=== PATIENT | male | born 1985 | race Caucasian/White ===

== ENCOUNTER 2024-04-30 12:36 | Emergency (ER) | payer SELFPAY ==
--- NOTE | ~2024-04-30 | CT_ITS ---
EXAMINATION: CT ABDOMEN AND PELVIS WITHOUT CONTRAST CLINICAL INFORMATION: Blood in urine. COMPARISON: None available. TECHNIQUE: Multidetector volumetric imaging was performed from the superior aspect of the liver through the pubic symphysis. Sagittal and coronal reformatted images were obtained on the technologist's workstation. This CT examination was performed using dose optimization techniques as appropriate, variously including the following: *Automated exposure control *Adjustment of mA and/or kV according to patient size (this includes techniques or standardized protocols for targeted exams where dose is matched to indication/reason for exam; i.e. extremities or head) *Use of iterative reconstruction technique DLP: 360 mGy-cm FINDINGS: LUNG BASES: No suspicious abnormality in the visualized lower chest LIVER, GALLBLADDER, AND BILIARY TREE: No suspicious abnormality in the liver. The gallbladder is somewhat contracted. No calcified stone. PANCREAS: No definite abnormality. SPLEEN: No suspicious abnormality. ADRENAL GLANDS: No suspicious abnormality. There is a left adrenal gland present. KIDNEYS AND URETERS: No left kidney is demonstrated. The right kidney measures at least 13.1 cm in greatest length. The right renal contour is smooth. There is no dilation of the urinary collecting system. No definite right ureteral calculus. No right perinephric collection. No suspicious right renal mass BLADDER: Bladder wall is mildly thickened. No focal mass demonstrated GASTROINTESTINAL TRACT: Large amount of fecal residue throughout the colon. Numerous fluid-filled small bowel loops. The stomach is not well-distended. I suspect segments of normal caliber partially gas-filled appendix are present. ABDOMINAL WALL: No significant hernia is appreciated. LYMPH NODES: No measurably enlarged lymph nodes. VASCULAR: No abdominal aortic aneurysm PELVIC VISCERA: No suspicious abnormality in the expected region of the prostate OSSEOUS STRUCTURES: Nonspecific irregularity involving the endplates at L5/S1 CT/CT abdomen pelvis wo IV con IMPRESSION: No opaque urinary calculus. No left kidney is demonstrated. The bladder wall is thickened. Fleischner guidelines were followed. Electronically signed by: Jatin Tam MD 04/30/2024 05:58 PM EDT
[2024-04-30 13:22] VITALS: BP 111/65; PULSE 72; RESP 16; TEMP 36.7; O2SAT 97; BMI 19.0
--- NOTE | 2024-04-30 13:22 | ED.MALEGU ---
HPI - Male Genitourinary General Chief complaint: Urogenital-Male Stated complaint: Blood in urine Time Seen by Provider: 04/30/24 18:05 Source: patient Mode of arrival: ambulatory Limitations: no limitations History of Present Illness ED Provider: ORTIZ REA PA-C HPI Narrative: 39-year-old male with no significant past medical history presents to the ED today for evaluation of dysuria and incomplete bladder emptying times 24 hours. Endorses associated lower abdominal pressure. Admits to seeing brown/pink coloration to his urine this morning, prompting him to come to the ED for further evaluation. Admits to new sexual partner 4 months ago and is unsure of STD status. Denies known fevers, chills, flank pain, penile discharge, rashes. Related Data Previous Rx's ?Medication ?Instructions ?Recorded cefuroxime axetil 500 mg tablet 500 mg PO BID 7 days #14 tabs 04/30/24 Allergies Allergy/AdvReac Type Severity Reaction Status Date / Time Seasonal Allergies Allergy Itching Verified 04/30/24 13:24 Review of Systems Review of Systems: Constitutional: No fever, chills, fatigue, night sweats, weight changes ENT/Mouth: No ear pain, hearing loss, nasal congestion, sinus pain, rhinorrhea, sore throat Eyes: No eye pain, swelling, redness, vision changes, discharge Cardio: No chest pain, palpitations, LATHAM, orthopnea, peripheral edema Pulm: No SOB, cough, sputum, wheezing, dyspnea, hemoptysis GI: No nausea, vomiting, hematemesis, abdominal pain, diarrhea, constipation, hematochezia, melena : No irregular bleeding, hematuria, flank pain, urinary flow changes, urinary incontinence or retention, +dysuria, +urgency, +frequency MSK: No back pain, neck pain, joint pain, myalgias Skin: No lesions, rashes Neuro: No weakness, numbness, paresthesias, LOC, dizziness, headache Psych: No anxiety/panic, depression, SI/HI, AH/VH All other systems reviewed and are negative. [facility] Past Medical History Attestation statement: The following information was validated with the patient. Source: old records reviewed and nursing notes reviewed Social History Social History Advance Directives: No Advance Directives Information Provided: No Physical Exam Vital Signs: Vital Signs: Last Vital Signs Temp 98.0 F 04/30/24 13:22 Pulse 63 04/30/24 16:59 Resp 17 04/30/24 16:59 BP 117/76 04/30/24 16:59 Pulse Ox 100 04/30/24 16:59 O2 Del Method Room Air 04/30/24 16:59 BMI result Body Mass Index 19.0 Vital signs stable, afebrile. General: Well appearing, in no acute distress. Skin: Warm, dry, intact. No rashes or lesions. Head: Normocephalic, atraumatic. EENT: Hearing is intact b/l. Conjunctiva clear. Sclera is anicteric. PERRLA. EOM intact. Moist mucous membranes.? Neck: Supple without LAD. FROM. Trachea midline.? Cardiac: Chest wall symmetric. RRR. No MRG. No JVD. Lungs: Normal respiratory effort without accessory muscle use. CTA bilaterally. No rales, rhonchi, or wheezes.? Abdomen: Soft, non-tender, non-distended. No rebound tenderness or guarding. Positive BS x4. No CVAT bilaterally. Back: No midline spinous or paraspinal tenderness. No step off deformity. Ext: Upper and lower extremities atraumatic, without tenderness, deformity, swelling or erythema. Neuro: AOx3. Normal speech. CN 2-12 grossly intact. Strength 5/5 intact throughout. Ambulating with steady gait. Psych: Appropriate mood and affect. Responds appropriately to questions. Course Course Course Narrative: This is a Rapid Medical Examination (RME) performed by Benigno Rea PA-C in triage. Full HPI, ROS, assessment and treatment plan per primary provider in the Main ED. 39 yo male here for eval of dysuria and incomplete bladder emptying x 24 hours. reports seeing brown/pink color in his urine this morning. admits to new sexual partner 4 mos ago. denies fever/chills, flank pain. + well appearing. no cvat. Plan: UA, CT/NG labs Reevaluation(s) Reevaluation #1: 1055 -- [place] [address] with left shift. Slight normocytic anemia. No prior labs to compare to. H&H stable and above transfusion threshold. Chemistry without acute electrolyte abnormality requiring intervention. No RENNY. Normal liver function. Urine is negative for gonorrhea and chlamydia. Urine with large amount of blood, positive nitrites, large leukocytes and over 50 WBCs with 4+ urine bacteria. On my interpretation of CT scan, I do not visualize the left kidney. No noted calculi. Bladder wall thickened. Large amount of feces throughout colon without evidence of obstruction. > discussed all workup results with patient. Will treat him for urinary tract infection. I did advise patient to follow-up with either PCP or urologist regarding nonvisualized left kidney as this may require further workup. He does not have evidence of elevated kidney function on labs and I am not concern for hydro or pyelonephritis at this time. Patient has remained stable throughout ED visit today. Discussed worrisome signs and symptoms and when to return to the ED. All questions answered at this time. Patient is agreeable with disposition and stable for discharge. Medical Decision Making Medical Decision Making [facility] Narrative: 39-year-old male with no significant past medical history presents to the ED today for evaluation of dysuria and incomplete bladder emptying times 24 hours. Vital signs stable, afebrile. Patient is nontoxic-appearing and in no acute distress. Abdomen is soft, nondistended, nontender to palpation, no rebound tenderness or guarding. No CVAT bilaterally. Skin warm, dry, intact. No rashes. Differential includes UTI, pyelonephritis, hydronephrosis, STI. Unlikely appendicitis, diverticulosis, diverticulitis. Plan for labs, UA, CT/NG, CT scan Differential Diagnosis Differential Diagnoses: The differential diagnosis associated with the presentation includes As above Admission/Observation Not indicated Lab Data [facility] Lab Attestation statement: I reviewed the patient's lab results. As above 04/30/24 13:54 04/30/24 13:54 Labs: Lab Results 04/30/24 Range/Units 13:54 WBC 12.3 H (4.8-10.8) X10*3/uL RBC 3.99 L (4.60-5.80) X10*6/uL Hgb 13.7 L (14.0-18.0) g/dl Hct 37.4 L (42.0-52.0) % MCV 93.7 (80.0-98.0) fL MCH 34.3 H (27.0-33.0) pg MCHC 36.6 H (31.0-36.0) g/dl RDW 11.7 (11.0-16.0) % Plt Count 157 L (160-400) X10*3/uL MPV 9.3 L (9.4-12.4) fL Immature Gran % (Auto) 0.3 (0.0-0.4) % Neut % (Auto) 80.4 H (45-73) % Lymph % (Auto) 11.2 L (20-40) % [place] % (Auto) 7.7 (2-11) % Eos % (Auto) 0.2 (0-4) % Baso % (Auto) 0.2 (0-2) % Lymph # (Auto) 1.4 (1.2-4.9) X10*3/uL [place] # (Auto) 1.0 (0.1-1.2) X10*3/uL Eos # (Auto) 0.0 (0.0-0.4) X10*3/uL Baso # (Auto) 0.0 (0.0-0.2) X10*3/uL Abs Immat Gran (auto) 0.04 H (0.00-0.03) X10*3/uL Absolute Neuts (auto) 9.9 H (2.0-8.3) x10*3/uL Absolute Nucleated RBC 0.000 (0.0-0.012) X10*3/uL Nucleated RBC % (auto) 0.0 (0.0-0.2) /100WBC Sodium 139 (135-145) mmol/L Potassium 4.6 (3.3-5.1) mmol/L Chloride 104 (96-108) mmol/L Carbon Dioxide 30 H (22-29) mmol/L Anion Gap 10 L (12-20) BUN 12 (9-16) mg/dL Creatinine 0.86 (0.5-1.4) mg/dL Estim Creat Clear Calc 108.4 Estimated GFR > 60 Random Glucose 90 (60-115) mg/dL Calcium 9.6 (8.4-10.2) mg/dL Total Bilirubin 1.3 H (0.0-1.0) mg/dL AST 23 (5-37) U/L ALT 16 (0-40) U/L Alkaline Phosphatase 48 (39-117) U/L Total Protein 6.8 (6.5-8.0) g/dL Albumin 4.3 (3.5-5.0) g/dL Urine Color Yellow Urine Appearance Cloudy Urine pH 6.5 (5.0-9.0) Ur Specific [place] 1.010 (1.005-1.025) Urine Protein 30 (1+) H (Neg-Trace) mg/dL Urine Glucose (UA) Negative (Negative) mg/dL Urine Ketones Negative (Negative) mg/dL Urine Blood Large (3+) H (Negative) Urine Nitrite Positive H (Negative) Ur Leukocyte Esterase Large (3+) H (Negative) Urine RBC 6-10 H (0-2) /HPF Urine WBC >50 H (0-5) /HPF Ur Squamous Epith Cells 0-2 (0-2) /HPF Urine Bacteria 4+ (None Seen) Hyaline Casts 0-2 (0-2) /LPF Chlam trachomat DNA PCR NOT DETECTED (Not Detect.) N.gonorrhoeae DNA (PCR) NOT DETECTED (Not Detect.) Independent Interpretation I performed an independent interpretation of an: CT Scan Interpretation: CT abdomen/pelvis without urethral calculi or renal stone, agree with radiologist's interpretation. Radiology Impression Discussion of test interpretation with radiology: I have reviewed the radiologist's reading. Radiologist Impression: EXAMINATION: CT ABDOMEN AND PELVIS WITHOUT CONTRAST CLINICAL INFORMATION: Blood in urine. COMPARISON: None available. TECHNIQUE: Multidetector volumetric imaging was performed from the superior aspect of the liver through the pubic symphysis. Sagittal and coronal reformatted images were obtained on the technologist's workstation. This CT examination was performed using dose optimization techniques as appropriate, variously including the following: *Automated exposure control *Adjustment of mA and/or kV according to patient size (this includes techniques or standardized protocols for targeted exams where dose is matched to indication/reason for exam; i.e. extremities or head) *Use of iterative reconstruction technique DLP: 360 mGy-cm FINDINGS: LUNG BASES: No suspicious abnormality in the visualized lower chest LIVER, GALLBLADDER, AND BILIARY TREE: No suspicious abnormality in the liver. The gallbladder is somewhat contracted. No calcified stone. PANCREAS: No definite abnormality. SPLEEN: No suspicious abnormality. ADRENAL GLANDS: No suspicious abnormality. There is a left adrenal gland present. KIDNEYS AND URETERS: No left kidney is demonstrated. The right kidney measures at least 13.1 cm in greatest length. The right renal contour is smooth. There is no dilation of the urinary collecting system. No definite right ureteral calculus. No right perinephric collection. No suspicious right renal mass BLADDER: Bladder wall is mildly thickened. No focal mass demonstrated GASTROINTESTINAL TRACT: Large amount of fecal residue throughout the colon. Numerous fluid-filled small bowel loops. The stomach is not well-distended. I suspect segments of normal caliber partially gas-filled appendix are present. ABDOMINAL WALL: No significant hernia is appreciated. LYMPH NODES: No measurably enlarged lymph nodes. VASCULAR: No abdominal aortic aneurysm PELVIC VISCERA: No suspicious abnormality in the expected region of the prostate OSSEOUS STRUCTURES: Nonspecific irregularity involving the endplates at L5/S1 CT/CT abdomen pelvis wo IV con IMPRESSION: No opaque urinary calculus. No left kidney is demonstrated. The bladder wall is thickened. Fleischner guidelines were followed. Electronically signed by: Jatin Tam MD 04/30/2024 05:58 PM EDT Prescription Management I considered prescription management with: Antibiotic (ceftin) Social Determinants Patient?s care significantly limited by Social Determinants of Health including: Other Social Determinant of Health Critical Care Time Critical Care Time Critical Care Time: No Discharge Plan Discharge Clinical Impression: Urinary tract infection Patient Disposition: Home, Self-Care Instructions: Urinary Tract Infection in Men (ED) Additional Instructions: Your blood work today is reassuring. You tested negative for gonorrhea and chlamydia. Your urine today was positive for infection. Ceftin is an antibiotic that has been sent to your pharmacy. Take this as prescribed and do not miss any doses. You must complete the entire course of antibiotics. If you do not, there is a risk of the infection coming back or worsening. Your urine has been sent off for culture. If you require an adjustment to your antibiotic, you will be called in 2-3 days. Take Tylenol/ibuprofen as needed for pain/discomfort. Follow up with your primary care provider as needed. If you develop a fever or new/ worsening symptoms call 911 or come back to the ER for further evaluation. The CT scan of your abdomen states your left kidney could not be visualized. Please follow up with urology regarding this. You have been provided with their number. Call them to schedule an appointment, they will not call you. Prescriptions: New cefuroxime axetil 500 mg tablet 500 mg PO BID 7 Days Qty: 14 0RF Referrals: [facility] [Provider Group] Stand Alone Forms: Work/School Release Discharge Date/Time: 04/30/24 18:45 Print Language: Lao
[2024-04-30 13:59] LABS: Basophils Percent Auto 0.2 % (0-2); Eosinophils Percent Auto 0.2 % (0-4); Hematocrit 37.4 % (42.0-52.0); Hemoglobin 13.7 g/dl (14.0-18.0); Imm Gran Abs Auto 0.04 X10*3/uL (0.00-0.03); Imm Gran Pct Auto 0.3 % (0.0-0.4); Lymphocytes Absolute Auto 1.4 X10*3/uL (1.2-4.9); Lymphocytes Percent Auto 11.2 % (20-40); MANUAL DIFF FLAG NO; Mean Corpuscular HGB Conc 36.6 g/dl (31.0-36.0); Mean Corpuscular Hemoglobin 34.3 pg (27.0-33.0); Mean Corpuscular Volume 93.7 fL (80.0-98.0); Mean Platelet Volume 9.3 fL (9.4-12.4); Monocytes Percent Auto 7.7 % (2-11); Neutrophils Absolute Auto 9.9 x10*3/uL (2.0-8.3); Neutrophils Percent Auto 80.4 % (45-73); Platelet Count 157 X10*3/uL (160-400); Red Blood Count 3.99 X10*6/uL (4.60-5.80); Red Cell Distribution Width 11.7 % (11.0-16.0); White Blood Count 12.3 X10*3/uL (4.8-10.8)
[2024-04-30 14:01] LABS: Appearance Urine Cloudy; Color Urine Yellow; Glucose Urine UA Negative (Negative); Leukocyte Esterase Urine Large (3+) (Negative); Nitrite Urine Positive (Negative); PH 6.5 (5.0-9.0); UMIC TRIGGER UACC YES; Urine Blood Large (3+) (Negative); Urine Ketones Negative (Negative); Urine Protein 30 (1+) mg/dL (Neg-Trace)
[2024-04-30 14:05] LABS: Bacteria Urine 4+ (None Seen); Hyaline Casts Urine 0-2 /LPF (0-2); Squamous Epithelial Cell Urine 0-2 /HPF (0-2); UACC Culture Trigger YES; WBC Urine >50 /HPF (0-5)
[2024-04-30 14:14] LABS: Alanine Aminotransferase 16 U/L (0-40); Albumin Level 4.3 g/dL (3.5-5.0); Alkaline Phosphatase 48 U/L (39-117); Anion Gap 10 (12-20); Aspartate Amino Transferase 23 U/L (5-37); Bilirubin Total 1.3 mg/dL (0.0-1.0); Blood Urea Nitrogen 12 mg/dL (9-16); Calcium 9.6 mg/dL (8.4-10.2); Carbon Dioxide 30 mmol/L (22-29); Chloride 104 mmol/L (96-108); Creatinine Clr Calc Pharmacy 108.4; Estimated Glomerular Filt Rate > 60; Glucose Random 90 mg/dL (60-115); Potassium 4.6 mmol/L (3.3-5.1); Sodium 139 mmol/L (135-145); Total Protein 6.8 g/dL (6.5-8.0)
[2024-04-30 15:29] LABS: CT PCR NOT DETECTED (Not Detect.); NG PCR NOT DETECTED (Not Detect.)
[2024-04-30 16:59] VITALS: BP 117/76; PULSE 63; RESP 17; O2SAT 100
[2024-04-30 18:44] VITALS: BP 117/76; PULSE 63; RESP 17; TEMP 36.7; O2SAT 100
== END 2024-04-30 18:45 | disposition home or self-care (01) ==
PROVIDERS: Physician Assistant Medical; Emergency Provider Emergency Medicine
DX: N39.0 Urinary tract infection, site not specified (principal); R31.29 Other microscopic hematuria; R10.31 Right lower quadrant pain; Z79.899 Other long term (current) drug therapy
CPT/HCPCS: 36415; 74176; 80053; 81001; 81003; 85025; 87086; 87088; 87186; 87491; 87591; 99283; 99284